=== PATIENT | female | born 2000 | race African-American/Black ===

== ENCOUNTER → 2023-05-01 09:01 | Outpatient (CLI) | payer OTHER, SELFPAY ==
[2023-05-01 21:11] LABS: Urine N gonorrhoeae NOT DETECTED
[2023-05-01 21:12] LABS: Urine Chlamydia NOT DETECTED
== END ==
PROVIDERS: PCP Family Medicine; Visit Provider Family Medicine
DX: Z20.2 Contact with and (suspected) exposure to infections with a predominantly sexual mode of transmission (principal); R00.0 Tachycardia, unspecified; N92.1 Excessive and frequent menstruation with irregular cycle; R53.1 Weakness
CPT/HCPCS: 87491; 87591

== ENCOUNTER → 2023-05-03 11:19 | Outpatient (CLI) | payer OTHER, SELFPAY ==
[2023-05-03 20:01] LABS: Add Manual Diff / Slide Review NO; Basophils Absolute Auto 0 /uL (0-100); Basophils Percent Auto 0.8 % (0-2); Eosinophils Absolute Auto 100 /uL (0-450); Hematocrit 38.4 % (36-46); Hemoglobin 12.6 g/dL (12.0-16.0); Lymphocytes Absolute Auto 2200 /uL (1100-4500); Mean Corpuscular HGB Conc 32.7 % (30-36); Mean Corpuscular Hemoglobin 28.9 PG (26-34); Mean Corpuscular Volume 88.4 fL (80-100); Monocytes Absolute Auto 400 /uL (0-900); Monocytes Percent Auto 7.6 % (3-14); Neutrophils Absolute Auto 2700 /uL (1500-7000); Neutrophils Percent Auto 50.6 % (50-75); Platelet Count 293 X10^3/uL (150-400); Red Blood Cell Count 4.34 X10^6/uL (4.0-5.2); Red Cell Distribution Width 16.1 % (11.6-14.8); White Blood Cell Count 5.4 X10^3/uL (4.5-11.0)
[2023-05-03 20:20] LABS: Alanine Aminotransferase 14 IU/L (<35); Albumin 4.4 g/dL (3.5-5.0); Alkaline Phosphatase 67 U/L (38-126); Aspartate Aminotransferase 62 IU/L (14-36); BUN Creatinine Ratio 15.7 (6-22); Bilirubin Total 0.4 mg/dL (0.2-1.3); Blood Urea Nitrogen 11 mg/dL (7-17); Calcium 9.7 mg/dL (8.4-10.2); Carbon Dioxide 25 mmol/L (22-32); Chloride 104 mmol/L (98-107); Estimated Glomerular Filt Rate > 60 mL/min (>60); Globulin 4.2 g/dL (1.7-4.1); Glucose 89 mg/dL (70-100); HEMOLYSIS < 15 (0-50); Potassium 3.3 mmol/L (3.4-5.1); Sodium 137 mmol/L (137-145); Total Protein 8.6 g/dL (6.3-8.2)
[2023-05-03 20:21] LABS: HEMOLYSIS < 15 (0-50); Iron 40 ug/dL (37-170)
[2023-05-03 20:32] LABS: Percent Iron Saturation 10 % (15-50); Total Iron Binding Capacity 384 ug/dL (265-497); Transferrin 334 mg/dL (206-381)
[2023-05-03 20:51] LABS: Ferritin 6 ng/mL (6-137)
[2023-05-03 22:30] LABS: TSH w/ Reflex to FT4 1.36 uIU/mL (0.47-4.68)
[2023-05-04 17:13] LABS: Hepatitis B Surface Antigen NEGATIVE s/c (NEGATIVE)
[2023-05-04 17:46] LABS: HIV 1 & 2 Ab/Ag 4th Gen Combo NEGATIVE (NEGATIVE); Hep C Virus Ab w/Reflex Quant NEGATIVE s/c (NEGATIVE)
[2023-05-05 07:20] LABS: Hepatitis B Core Antibody Negative (Negative)
[2023-05-06 08:52] LABS: Hepatitis B Surf Ab Qualitativ Non Reactive (.)
[2023-05-10 12:36] LABS: Treponema pallidum Antibodies Non Reactive
== END ==
PROVIDERS: PCP Family Medicine; Visit Provider Family Medicine
DX: N92.1 Excessive and frequent menstruation with irregular cycle (principal); R00.0 Tachycardia, unspecified; Z20.2 Contact with and (suspected) exposure to infections with a predominantly sexual mode of transmission; R53.1 Weakness
CPT/HCPCS: 80053; 82728; 83540; 83550; 84443; 85025; 86704; 86706; 86780; 86803; 87340; 87389